=== PATIENT | female | born 1965 | race Caucasian/White ===

== ENCOUNTER 2017-03-03 17:40 | Emergency (ER) | payer OTHER ==
[~2017-03-03] VITALS: Ht 157.5 cm; Wt 52.6 kg
[2017-03-03 17:58] VITALS: BP 154/72
== END 2017-03-03 21:32 | disposition left against medical advice (07) ==
LOC: ED 17:40
DX: Z53.21 Procedure and treatment not carried out due to patient leaving prior to being seen by health care provider (principal)

== ENCOUNTER 2017-07-16 00:40 | Emergency (ER) | payer OTHER ==
[2017-07-16 04:03] LABS: BASOPHIL % 0.8 % (0-2); PLATELET COUNT 273 x10^3mcL (130-400)
[2017-07-16 05:10] LABS: ALKALINE PHOSPHATASE 167 U/L (46-116); ALT/SGPT 14 U/L (14-59); AST/SGOT 39 U/L (15-37); BILIRUBIN TOTAL 0.8 mg/dL (0.20-1.00); CARBON DIOXIDE 14.1 mmol/L (21-32); CHLORIDE SERUM 100 mmol/L (98-107); GLUCOSE SERUM 81 mg/dL (74-106); POTASSIUM SERUM 4.6 mmol/L (3.5-5.1); SODIUM SERUM 131 mmol/L (136-145); TOTAL PROTEIN, SERUM 7.7 g/dL (6.4-8.2)
[2017-07-16 05:11] LABS: ALBUMIN 2.9 g/dL (3.4-5.0)
[2017-07-16 05:30] LABS: CALCIUM 8.9 mg/dL (8.5-10.1); CREATININE SERUM 0.7 mg/dL (0.6-1.0); GFR1 > 60 mL/min
[2017-07-16 06:59] VITALS: BP 137/66
== END 2017-07-16 06:40 | disposition home or self-care (01) ==
LOC: ED 00:40
PROVIDERS: Emergency Medicine
DX: G89.29 Other chronic pain (principal); M25.551 Pain in right hip; Z88.2 Allergy status to sulfonamides; Z88.1 Allergy status to other antibiotic agents
CPT/HCPCS: J2270; J3010

== ENCOUNTER 2017-07-25 16:14 | Inpatient (IN) | payer OTHER ==
[~2017-07-25] VITALS: Ht 157.5 cm; Wt 60.9 kg
[2017-07-25 17:13] LABS: BASOPHIL % 1.3 % (0-2); PLATELET COUNT 311 x10^3mcL (130-400)
[2017-07-25 17:22] LABS: CALCIUM 8.7 mg/dL (8.5-10.1); CARBON DIOXIDE 19.5 mmol/L (21-32); CHLORIDE SERUM 104 mmol/L (98-107); CREATININE SERUM 0.8 mg/dL (0.6-1.0); GFR1 > 60 mL/min; GLUCOSE SERUM 108 mg/dL (74-106); POTASSIUM SERUM 4.2 mmol/L (3.5-5.1); SODIUM SERUM 138 mmol/L (136-145)
[2017-07-25 17:27] LABS: ALKALINE PHOSPHATASE 137 U/L (46-116); ALT/SGPT 14 U/L (14-59); AMYLASE 40 U/L (25-115); AST/SGOT 22 U/L (15-37); BILIRUBIN TOTAL 0.74 mg/dL (0.20-1.00); LIPASE 116 IU/L (73-393)
[2017-07-25 17:28] LABS: RED CELL DISTRIBUTION WIDTH 17.8 % (11.5-14.5)
[2017-07-25 17:34] LABS: ALBUMIN 2.7 g/dL (3.4-5.0)
[2017-07-25 18:25] LABS: UA SPECIFIC GRAVITY >=1.030 (1.005-1.035); microscopic required? YES; urine erythrocyte TRACE (NEGATIVE)
[2017-07-25 18:43] LABS: AMPHETAMINE QUAL UR NONE DETECTED (NEG <=1000)
[2017-07-25] MEDS ORDERED: LASIX20 MG (19:09)
[2017-07-25] MEDS ORDERED: NORCO 10-325 T1 EACH (19:10)
[2017-07-25 20:18] VITALS: BP 149/75
[2017-07-25 20:36] LABS: FREE T4 1.66 ng/dL (0.76-1.46); FREE THYROXINE INDEX 2.7 ug/dL (1.4-4.5); T4(THYROXINE) 6.8 ug/dL (4.7-13.3)
[2017-07-25 20:37] LABS: T3 TOTAL 0.7 ng/mL
[2017-07-25 20:49] LABS: CHOLESTEROL/HDL RATIO 3.7; MAGNESIUM 1.4 mg/dL (1.8-2.4); PHOSPHOROUS 4.3 mg/dL (2.5-4.9)
[2017-07-26 06:45] VITALS: BP 157/68
[2017-07-26 09:27] VITALS: BP 152/68
[2017-07-26 11:57] VITALS: BP 152/68
[2017-07-26 13:00] VITALS: BP 151/64
[2017-07-26 16:32] VITALS: BP 152/64
[2017-07-26 20:58] VITALS: BP 160/71
[2017-07-27 05:22] VITALS: BP 149/69
[2017-07-27 06:05] LABS: BASOPHIL % 0.6 % (0-2); PLATELET COUNT 250 x10^3mcL (130-400)
[2017-07-27 06:38] LABS: CALCIUM 8.3 mg/dL (8.5-10.1); CARBON DIOXIDE 24.1 mmol/L (21-32); CHLORIDE SERUM 101 mmol/L (98-107); CREATININE SERUM 0.9 mg/dL (0.6-1.0); GFR1 > 60 mL/min; GLUCOSE SERUM 88 mg/dL (74-106); MAGNESIUM 1.4 mg/dL (1.8-2.4); POTASSIUM SERUM 3.5 mmol/L (3.5-5.1); SODIUM SERUM 135 mmol/L (136-145)
[2017-07-27 06:42] LABS: RED CELL DISTRIBUTION WIDTH 18.2 % (11.5-14.5)
[2017-07-27 09:54] VITALS: Ht 157.5 cm; Wt 60.9 kg
[2017-07-27 10:35] VITALS: BP 165/72
[2017-07-27 20:01] VITALS: BP 139/74
[2017-07-27 22:00] VITALS: BP 150/64
[2017-07-28 06:33] VITALS: BP 128/65
[2017-07-28 09:49] LABS: CALCIUM 8.6 mg/dL (8.5-10.1); CARBON DIOXIDE 22.6 mmol/L (21-32); CHLORIDE SERUM 101 mmol/L (98-107); CREATININE SERUM 0.7 mg/dL (0.6-1.0); GFR1 > 60 mL/min; GLUCOSE SERUM 116 mg/dL (74-106); POTASSIUM SERUM 3.7 mmol/L (3.5-5.1); SODIUM SERUM 133 mmol/L (136-145)
[2017-07-28 10:27] VITALS: BP 119/65
[2017-07-28 17:48] VITALS: BP 128/55
[2017-07-28 22:29] VITALS: BP 136/63
[2017-07-29 05:15] VITALS: BP 145/70
[2017-07-29 08:07] LABS: CARBON DIOXIDE 20.6 mmol/L (21-32); CHLORIDE SERUM 101 mmol/L (98-107); CREATININE SERUM 0.8 mg/dL (0.6-1.0); GFR1 > 60 mL/min; GLUCOSE SERUM 94 mg/dL (74-106); MAGNESIUM 1.7 mg/dL (1.8-2.4); POTASSIUM SERUM 3.7 mmol/L (3.5-5.1); SODIUM SERUM 136 mmol/L (136-145)
[2017-07-29 08:46] VITALS: BP 145/70
[2017-07-29 10:04] VITALS: BP 130/55
[2017-07-29] MEDS ORDERED: TOP50 PO (13:09)
[2017-07-29] MEDS ORDERED: ZES20 PO (13:09)
[2017-07-29] MEDS ORDERED: LEXAPRO10 MG PO (13:11)
[2017-07-29] MEDS ORDERED: LASIX40 MG PO (13:11)
[2017-07-29] MEDS ORDERED: AMOXICILLIN500 M1 PO (13:13)
[2017-07-29 16:45] VITALS: BP 130/55
[2017-07-29 16:48] VITALS: BP 135/58
== END 2017-07-29 17:39 | disposition home health service (06) | DRG 200 ==
LOC: ED 16:14 → MU 19:08 → DU 19:08 → MU 07-26 07:34
PROVIDERS: Emergency Medicine; Family Medicine; ADMIT Family Medicine
DX: I35.1 Nonrheumatic aortic (valve) insufficiency (principal); N17.0 Acute kidney failure with tubular necrosis; I50.43 Acute on chronic combined systolic (congestive) and diastolic (congestive) heart failure; E43 Unspecified severe protein-calorie malnutrition; J90 Pleural effusion, not elsewhere classified; R18.8 Other ascites; I31.3 Pericardial effusion (noninflammatory); E83.42 Hypomagnesemia; N39.0 Urinary tract infection, site not specified; F33.1 Major depressive disorder, recurrent, moderate; I16.0 Hypertensive urgency; M16.11 Unilateral primary osteoarthritis, right hip; Z95.0 Presence of cardiac pacemaker; Z68.24 Body mass index [BMI] 24.0-24.9, adult; Z88.2 Allergy status to sulfonamides; Z88.8 Allergy status to other drugs, medicaments and biological substances; I11.0 Hypertensive heart disease with heart failure; E02 Subclinical iodine-deficiency hypothyroidism
CPT/HCPCS: 82962; 83880; 84439; 97110-GP; 97116-GP; 97530-GP; J0696; J1940; J2270; J2405; J3475; J7030; J7620; Q0092; Q0163

== ENCOUNTER 2017-08-05 11:51 | Inpatient (IN) | payer OTHER ==
[~2017-08-05] VITALS: Ht 157.5 cm; Wt 56.0 kg
[~2017-08-05 11:51] MED LIST: AMOXICILLIN500 M1 PO; LASIX20 MG; LASIX40 MG PO; LEXAPRO10 MG PO; NORCO 10-325 T1 EACH; TOP50 PO; ZES20 PO
[2017-08-05 12:42] LABS: BASOPHIL % 0.7 % (0-2); PLATELET COUNT 248 x10^3mcL (130-400)
[2017-08-05 12:43] LABS: RED CELL DISTRIBUTION WIDTH 17.4 % (11.5-14.5)
[2017-08-05 12:52] LABS: CALCIUM 9.4 mg/dL (8.5-10.1); CARBON DIOXIDE 25.8 mmol/L (21-32); CHLORIDE SERUM 102 mmol/L (98-107); CREATININE SERUM 0.8 mg/dL (0.6-1.0); GFR1 > 60 mL/min; GLUCOSE SERUM 94 mg/dL (74-106); POTASSIUM SERUM 4.2 mmol/L (3.5-5.1); SODIUM SERUM 137 mmol/L (136-145)
[2017-08-05 12:57] LABS: ALKALINE PHOSPHATASE 124 U/L (46-116); ALT/SGPT 17 U/L (14-59); AST/SGOT 28 U/L (15-37); BILIRUBIN TOTAL 1.27 mg/dL (0.20-1.00); TOTAL PROTEIN, SERUM 7.3 g/dL (6.4-8.2)
[2017-08-05 15:14] VITALS: BP 167/79
[2017-08-05 15:45] LABS: MAGNESIUM 1.5 mg/dL (1.8-2.4); PHOSPHOROUS 3.7 mg/dL (2.5-4.9)
[2017-08-05 15:52] LABS: T3 TOTAL 0.77 ng/mL
[2017-08-05 15:54] LABS: CHOLESTEROL/HDL RATIO 3.4
[2017-08-05 16:10] LABS: FREE T4 1.69 ng/dL (0.76-1.46); FREE THYROXINE INDEX 3.5 ug/dL (1.4-4.5); T4(THYROXINE) 9.3 ug/dL (4.7-13.3)
[2017-08-05 16:41] LABS: microscopic required? YES; urine erythrocyte NEGATIVE (NEGATIVE)
[2017-08-05 16:50] LABS: AMPHETAMINE QUAL UR NONE DETECTED (NEG <=1000)
[2017-08-05 18:56] VITALS: BP 157/68
[2017-08-05 23:02] VITALS: BP 153/71
[2017-08-06 06:14] VITALS: BP 122/65
[2017-08-06 06:32] LABS: BASOPHIL % 1.1 % (0-2); PLATELET COUNT 251 x10^3mcL (130-400)
[2017-08-06 06:43] LABS: RED CELL DISTRIBUTION WIDTH 18.2 % (11.5-14.5)
[2017-08-06 06:52] LABS: CALCIUM 9.1 mg/dL (8.5-10.1); CARBON DIOXIDE 24.8 mmol/L (21-32); CHLORIDE SERUM 100 mmol/L (98-107); CREATININE SERUM 0.8 mg/dL (0.6-1.0); GFR1 > 60 mL/min; GLUCOSE SERUM 106 mg/dL (74-106); MAGNESIUM 1.8 mg/dL (1.8-2.4); POTASSIUM SERUM 3.8 mmol/L (3.5-5.1); SODIUM SERUM 136 mmol/L (136-145)
[2017-08-06 10:25] VITALS: BP 142/59
[2017-08-06 10:26] VITALS: BP 122/55
[2017-08-06 14:17] VITALS: BP 128/44
[2017-08-06 17:56] VITALS: BP 130/53
[2017-08-06 21:06] VITALS: BP 141/61
[2017-08-07 07:04] VITALS: BP 162/57
[2017-08-07 07:13] LABS: CARBON DIOXIDE 27.6 mmol/L (21-32); CHLORIDE SERUM 95 mmol/L (98-107); GFR1 > 60 mL/min; GLUCOSE SERUM 99 mg/dL (74-106); MAGNESIUM 1.3 mg/dL (1.8-2.4); PHOSPHOROUS 4.8 mg/dL (2.5-4.9); POTASSIUM SERUM 3.9 mmol/L (3.5-5.1); SODIUM SERUM 135 mmol/L (136-145)
[2017-08-07 07:20] LABS: BASOPHIL % 0.9 % (0-2); PLATELET COUNT 273 x10^3mcL (130-400); RED CELL DISTRIBUTION WIDTH 17.7 % (11.5-14.5)
[2017-08-07 10:19] VITALS: BP 138/52
[2017-08-07 13:59] VITALS: BP 138/52
[2017-08-07 17:55] VITALS: BP 124/53
[2017-08-07 21:21] VITALS: BP 133/54
[2017-08-07 21:22] VITALS: BP 133/54
[2017-08-08 06:18] VITALS: BP 127/51
[2017-08-08 07:05] LABS: BASOPHIL % 0.3 % (0-2); PLATELET COUNT 274 x10^3mcL (130-400)
[2017-08-08 07:09] LABS: RED CELL DISTRIBUTION WIDTH 18.2 % (11.5-14.5)
[2017-08-08 07:43] LABS: CALCIUM 9.4 mg/dL (8.5-10.1); CARBON DIOXIDE 29.1 mmol/L (21-32); CREATININE SERUM 1.1 mg/dL (0.6-1.0); PHOSPHOROUS 4.2 mg/dL (2.5-4.9); POTASSIUM SERUM 3.7 mmol/L (3.5-5.1)
[2017-08-08 08:25] VITALS: BP 125/43
[2017-08-08 12:36] VITALS: BP 106/50
[2017-08-08] MEDS ORDERED: LEVAQUIN750 MG PO (13:14)
[2017-08-08] MEDS ORDERED: LAC PO (13:15)
[2017-08-08 13:56] VITALS: BP 106/50
[2017-08-08 15:49] VITALS: Ht 157.5 cm; Wt 56.0 kg
== END 2017-08-08 16:35 | disposition home or self-care (01) | DRG 137 ==
LOC: ED 11:51 → DU 14:04
PROVIDERS: Emergency Medicine; Family Medicine Sports Medicine; ADMIT Family Medicine
DX: J69.0 Pneumonitis due to inhalation of food and vomit (principal); N17.0 Acute kidney failure with tubular necrosis; I50.43 Acute on chronic combined systolic (congestive) and diastolic (congestive) heart failure; E44.0 Moderate protein-calorie malnutrition; I11.0 Hypertensive heart disease with heart failure; N39.0 Urinary tract infection, site not specified; E83.42 Hypomagnesemia; E02 Subclinical iodine-deficiency hypothyroidism; I35.1 Nonrheumatic aortic (valve) insufficiency; F32.9 Major depressive disorder, single episode, unspecified; M17.11 Unilateral primary osteoarthritis, right knee; E87.1 Hypo-osmolality and hyponatremia; Z68.21 Body mass index [BMI] 21.0-21.9, adult; Z88.2 Allergy status to sulfonamides; Z88.8 Allergy status to other drugs, medicaments and biological substances; Z86.73 Personal history of transient ischemic attack (TIA), and cerebral infarction without residual deficits
CPT/HCPCS: 36600; 82962; 83880; 84439; 90658; 94150; 97116-GP; 97530-GP; J1885; J1940; J1956; J2060; J2270; J2405; J3475; J7030; J7620; Q0092; Q0162

== ENCOUNTER 2017-08-27 01:57 | Inpatient (IN) | payer OTHER ==
[~2017-08-27] VITALS: Ht 157.5 cm; Wt 49.4 kg
[~2017-08-27 01:57] MED LIST changes: +LAC PO; +LEVAQUIN750 MG PO
--- NOTE | 2017-08-27 02:11 | NUR ---
PATIENT WAS BROUGHT IN BY EMS WITH COMPLAINT OF SUDDEM EPISODE OF SOB. SEEN IN NO ACUTE DISTRESS. STABLE VITAL SIGNS. PATIENT IS WAITING FOR MD EVALUATION.
--- NOTE | 2017-08-27 03:30 | NUR ---
DAYNA FROM [facility] CALL TO GET REPORT. PATIENT NOT ACCEPTED, DAYNA REQUEST A CALL BACK IN THE MORNING TO SEE IF ANY CHIDI BED AVAILABLE.( INSSURANCE ISSUE).
--- NOTE | 2017-08-27 03:41 | NUR ---
PATIENT IS ADIFFICULT IV STICK, WANTS AN EJ. NOTIFIED.
--- NOTE | 2017-08-27 04:00 | NUR ---
PATIENT MEDICATED WITH SUBLAMAZE FOR PAIN.EQUESTED NAUSEA MEDICATION
--- NOTE | 2017-08-27 04:30 | NUR ---
RESIDENT AT THE BEDSIDE TALKING TO THE PATIENT. PATIENT MEDICATED WITH ZOFRAN AND ASA.
[2017-08-27 04:36] LABS: BASOPHIL % 0.5 % (0-2); PLATELET COUNT 242 x10^3mcL (130-400)
--- NOTE | 2017-08-27 04:53 | NUR ---
REPORT WAS GIVEN TO PETERSON. PATIENT TRANSPORTED TO ROOM 236B.
[2017-08-27 04:58] LABS: CALCIUM 8.8 mg/dL (8.5-10.1); CARBON DIOXIDE 18.4 mmol/L (21-32); CHLORIDE SERUM 103 mmol/L (98-107); CREATININE SERUM 0.8 mg/dL (0.6-1.0); GFR1 > 60 mL/min; GLUCOSE SERUM 88 mg/dL (74-106); POTASSIUM SERUM 3.9 mmol/L (3.5-5.1); SODIUM SERUM 135 mmol/L (136-145)
--- NOTE | 2017-08-27 04:58 | NUR ---
PATIENT IS ADMITTED , MRSA SWAN WAS DONE. .PATIENT WAITING TO HAVE A SITTER FOR BED TO BE ASSIGNED. PATIENT IS SLEEPING AT THIS TIME.
[2017-08-27 05:02] LABS: RED CELL DISTRIBUTION WIDTH 18.2 % (11.5-14.5)
[2017-08-27 05:05] LABS: ALKALINE PHOSPHATASE 123 U/L (46-116); ALT/SGPT 12 U/L (14-59); AST/SGOT 23 U/L (15-37); BILIRUBIN TOTAL 1.51 mg/dL (0.20-1.00); TOTAL PROTEIN, SERUM 7.6 g/dL (6.4-8.2)
[2017-08-27 05:06] LABS: ALBUMIN 3.2 g/dL (3.4-5.0)
[2017-08-27 05:09] VITALS: BP 170/80
[2017-08-27 05:13] LABS: T3 TOTAL 0.76 ng/mL
[2017-08-27 05:18] LABS: MAGNESIUM 1.4 mg/dL (1.8-2.4); PHOSPHOROUS 4.2 mg/dL (2.5-4.9)
[2017-08-27 05:19] LABS: CHOLESTEROL/HDL RATIO 4.4
[2017-08-27 05:32] VITALS: BP 170/80
[2017-08-27 05:48] LABS: FREE T4 1.88 ng/dL (0.76-1.46); FREE THYROXINE INDEX 3.4 ug/dL (1.4-4.5); T4(THYROXINE) 8.8 ug/dL (4.7-13.3)
--- NOTE | 2017-08-27 06:15 | NUR ---
HEPARIN BOLUS OF 3000 UNITS GIVEN IVP, AND HEPARIN INFUSION STARTED AT 600 UNITS/HR PER PROTOCOL. PT EDUCATED ON BENEFITS AND RISKS OF HEPARIN. INFUSION STARTED TO REJ WITH NO S/S OF INFILTRATION. INFUSION DOSAGE VERIFIED BY PURVI NATURAL RESOURCES MANAGER. INFUSION VERIFIED AT BEDSIDE BY SAHIL PRIMARY RN. WILL ENDORSE CARE TO SAHIL FOR FURTHER MONITORING.
--- NOTE | 2017-08-27 07:34 | NUR ---
RECEIVED SLEEPING BUT AROUSABLE, NO RESP. DISTRESS NOTED. NO C/O PAIN OR DISCOMFORT. MG RIDER AND HEPARIN DRIP INFUSING, SITE CLEAR. CALL LIGHT WITHIN REACH. WILL CONTINUE W/PLAN OF CARE.
--- NOTE | 2017-08-27 08:55 | NUR ---
PT C/O RT HIP PAIN, MEDICATED WITH NORCO.
[2017-08-27 09:01] VITALS: BP 173/76
--- NOTE | 2017-08-27 12:38 | NUR ---
PTT 0.235 DR. MENA AWARE.
[2017-08-27 14:24] VITALS: BP 142/56
--- NOTE | 2017-08-27 14:59 | NUR ---
PTT 31.6, HEPARIN 3000UNITS GIVEN AND INFUSION ADJUSTED PER PROTOCAL. PT IN NO DISTRESS. NO ACTIVE BLEEDING NOTED. NO C/O PAIN AT THIS TIME. PTT ORDERED FOR 1800.
[2017-08-27 17:25] VITALS: BP 126/50
--- NOTE | 2017-08-27 18:48 | NUR ---
REMAINS IN NO ACUTE RESP. DISTRESS. AWAKE, ALERT AND ORIENTED. C/O HIP PAIN 06/16. MEDICATED WITH NORCO PER ORDER. HEPARIN GTT INFUSING PER ORDER. CALL LIGHT WITHIN REACH. WILL BE ENDORSED TO INCOMING SHIFT.
--- NOTE | 2017-08-27 19:31 | NUR ---
ASLEEP, EASILY AWAKENED. ORIENTED X 4. SPEECH CLEAR AND APPROPRIATE. HOB ELEVATED 30 DEG. UPPER SIDE RAILS IN RAISED POSITION. CALL LIGHT WITHIN EASY REACH. BREATHING EVEN AND UNLABORED ON ROOM AIR. STATED HAVING PAIN TO CHEST AND HIP, WORSE TO HIP. ON HEPARIN DRIP AT 800 UNITS/HR. LATEST PTT IS 62.1, PTT ORDERED FOR 2210H PER PROTOCOL.
[2017-08-27 20:33] VITALS: BP 141/62
--- NOTE | 2017-08-27 22:20 | NUR ---
URINE SPECIMEN SENT TO LAB
[2017-08-27 22:48] LABS: UA SPECIFIC GRAVITY 1.015 (1.005-1.035); microscopic required? YES; urine erythrocyte NEGATIVE (NEGATIVE)
[2017-08-27 22:56] LABS: AMPHETAMINE QUAL UR NONE DETECTED (NEG <=1000)
--- NOTE | 2017-08-27 23:03 | NUR ---
LAB CALLED, PTT 59.6. 2ND THERAPEUTIC PTT RESULT. PTT ORDERED DAILY. KEPT HEPARIN DRIP RATE AT 800 UNITS/HR PER PROTOCOL.
--- NOTE | 2017-08-27 23:33 | NUR ---
awake and alert, watching tv. denies having pain at this time. heparin drip at 800 units/hr. call light within easy reach.
[2017-08-28] VITALS (7 sets, daily range): BP systolic 104–149; BP diastolic 48–81
--- NOTE | 2017-08-28 04:53 | NUR ---
EYES CLOSED, BREATHING EVEN AND UNLABORED. CALL LIGHT WITHIN EASY REACH.
--- NOTE | 2017-08-28 05:29 | NUR ---
PT CALLED, WAS CRYING, UPSET. STATED THERE WERE BLOOD SPOTS ON LINEN AFTER PHLEBOTOMY DRAW. LINENS CHANGED. PT CALMER.
[2017-08-28 06:21] LABS: BASOPHIL % 0.6 % (0-2); PLATELET COUNT 228 x10^3mcL (130-400)
[2017-08-28 06:30] LABS: CALCIUM 8.5 mg/dL (8.5-10.1); CHLORIDE SERUM 103 mmol/L (98-107); GFR1 > 60 mL/min; GLUCOSE SERUM 84 mg/dL (74-106); MAGNESIUM 2.4 mg/dL (1.8-2.4); PHOSPHOROUS 4.9 mg/dL (2.5-4.9); POTASSIUM SERUM 4.4 mmol/L (3.5-5.1); SODIUM SERUM 131 mmol/L (136-145)
--- NOTE | 2017-08-28 07:35 | NUR ---
PATIENT LAYING IN BED. A/O X 3. NO SIGN OF ACUTE DISTRESS. NO COMPLAINT OF CHEST PAIN. NO COMPLAINT OF SOB. IV FLUIDS FLOWING. IV HEPARIN FLOWING. BED IN LOW POSITION. CALL LIGHT WITHIN REACH. WILL CONTINUE TO MONITOR.
--- NOTE | 2017-08-28 07:41 | NUR ---
PTT 34.0. GIVEN 3000 UNITS HEPARIN BOLUS AND INCREASED RATE TO 1000 UNITS/HR PER HEPARIN PROTOCOL. VERIFIED WITH SHARI TEMPLETON. NEXT PTT ORDERED FOR 11:40AM. NO ACTIVE BLEEDING NOTED AT THIS TIME. WILL CONTINUE TO MONITOR.
--- NOTE | 2017-08-28 10:30 | NUR ---
C/O GEN. BODY ACHE. 08/16. MEDICAED WITH MORPHINE IVP PER ORDER.NURSE JARETH BREAUX.
--- NOTE | 2017-08-28 12:48 | NUR ---
PT UP IN CHAIR. PT REPORTS PAIN IN RT. LEG IS TOLERABLE. NO SIGN OF ACUTE DISTRESS. NO REPORT OF CHEST PAIN. NO SOB. BED IN LOW POSITION. CALL LIGHT WITHIN REACH. IV FLUIDS FLOWING. HEPARIN FLOWING. WILL CONTINUE TO MONITOR.
--- NOTE | 2017-08-28 14:28 | NUR ---
PTT 87.1, REDUCED HEPARIN INFUSION TO 900 UNITS/HR PER HEPARIN PROTOCOL. VERIFIED WITH DALI RN. NEXT PTT ORDERED FOR 1610. NO ACTIVE BLEEDING NOTED. WILL CONTINUE TO MONITOR.
--- NOTE | 2017-08-28 15:10 | NUR ---
GAVE REPORT TO SHARI HARMON AT [facility] FOR TRANSFER TO ROOM #345B WITH DR. MCKOY. WILL CONTACT [facility] FOR TRANSPORT.
--- NOTE | 2017-08-28 17:39 | NUR ---
PTT >150. DR. HIGGINS AWARE. NO SIGNS OF BLEEDING. WILL CONTINUE TO MONITOR.
--- NOTE | 2017-08-28 18:28 | NUR ---
PATIENT SITTING IN BED. A/OX3. NO COMPLAINT OF PAIN. NO SIGN OF ACUTE DISTRESS. NO SIGN OF BLEEDING. BED IN LOW POSITION. CALL LIGHT WITHIN REACH. WILL ENDORSE TO ONCOMING SHIFT.
--- NOTE | 2017-08-28 19:21 | NUR ---
SITTING UP ON BED, BREATHING EVEN AND UNLABORED ON 2LPM OF O2 VIA NC. DENIES HAVING SHORTNESS OF BREATH. READY FOR TRANSFER TO [facility], PER DAY SHIFT REPORT, REPORT HAS BEEN GIVEN TO NURSE DEL RIO OF [facility], PT GOING TO ROOM 345B.
--- NOTE | 2017-08-28 19:26 | NUR ---
[facility] TRANSPORT HERE [place] [facility] PT AWAKE AND ALERT, IN NO ACUTE DISTRESS. NO BLEEDING. SALINE LOCK TO LEFT HAND. REPORT GIVENN TO [facility] TRANSPORT PERSONNEL.
--- NOTE | 2017-08-28 19:35 | NUR ---
REMOVED TELEBOX #18, RETURNED TO MONITOR STATION. [facility] PERSONNEL IN ROOM
--- NOTE | 2017-08-28 19:46 | NUR ---
STATED HAVING HIP PAIN 6-05/16. NORCO 7.5/325MG TABLET ADMINISTERED PO PRIOR TO TRANSPORT VIA [facility].
== END 2017-08-28 19:54 | disposition short-term general hospital (02) | DRG 194 ==
LOC: ED 01:57 → DU 04:00
PROVIDERS: Emergency Medicine; Family Medicine; ADMIT Family Medicine
DX: I11.0 Hypertensive heart disease with heart failure (principal); I21.4 Non-ST elevation (NSTEMI) myocardial infarction; I50.43 Acute on chronic combined systolic (congestive) and diastolic (congestive) heart failure; E44.0 Moderate protein-calorie malnutrition; E87.1 Hypo-osmolality and hyponatremia; I35.1 Nonrheumatic aortic (valve) insufficiency; E87.6 Hypokalemia; E83.42 Hypomagnesemia; E02 Subclinical iodine-deficiency hypothyroidism; E78.5 Hyperlipidemia, unspecified; Z68.1 Body mass index [BMI] 19.9 or less, adult; Z91.19 Patient's noncompliance with other medical treatment and regimen
CPT/HCPCS: 82962; 83880; 84439; J1644; J1940; J2270; J2405; J3010; J3475; J7030; Q0092

== ENCOUNTER 2017-09-27 20:28 | Emergency (ER) | payer OTHER ==
[2017-09-27 21:25] VITALS: BP 145/85
== END 2017-09-27 21:25 | disposition home or self-care (01) ==
LOC: ED 20:28
DX: G89.29 Other chronic pain (principal); M25.551 Pain in right hip; I10 Essential (primary) hypertension; Z88.2 Allergy status to sulfonamides; Z88.6 Allergy status to analgesic agent
CPT/HCPCS: J2270; Q0162

== ENCOUNTER 2019-03-31 21:53 | Emergency (ER) | payer OTHER | END 2019-03-31 22:25 | disposition other institution (70) | LOC: ED 21:53 | DX: Z02.89 Encounter for other administrative examinations (principal) ==

== ENCOUNTER 2019-03-31 21:53 | Emergency (ER) | payer OTHER ==
[~2019-03-31] VITALS: Ht 157.5 cm; Wt 51.3 kg
[2019-03-31 21:59] VITALS: BP 151/106; Ht 157.5 cm; Wt 51.3 kg
== END 2019-03-31 22:25 | disposition other institution (70) ==
LOC: ED 21:53
DX: Z02.89 Encounter for other administrative examinations (principal)

== ENCOUNTER 2019-06-11 18:34 | Inpatient (IN) | payer OTHER ==
[~2019-06-11] VITALS: Ht 160 cm; Wt 53.5 kg
[2019-06-11 18:37] VITALS: Ht 160 cm; Wt 53.5 kg
--- NOTE | 2019-06-11 18:43 | NUR ---
RECEIVED PATIENT TO ROOM 7, [facility], PER REPORT PATIENT'S ROOMMATE FOUND PATIENT AT HOME COVERED WITH BLOOD, TOOK METH YESTERDAY, AND WAS FIXATED ON PICKING NOSE UNTIL BLOOD ALL OVER. PATIENT AA ORIENTED TO NAME ONLY, SEEMS SCARED AND KEEPS SAYING 'PLEASE DON'T KILL ME." EYES - SHAYE, 3MM, BRISK. MUCUS -DRY. DRIED BLOOD ALL OVER FACE, NOSE, AND NECK AREA. LUNGS - CTA. BS PRESENT X 4 QUADRANTS. B/L UPPER AND LOWER EXT PULSES PALPABLE. DRY BLOOD ON BOTH ARMS AND B/L THIGHS. PATIENT PUT ON 4-PT RESTRAINT. PER [place] PATIENT ON 5150 AT THIS TIME - COMPLETED FORM IN CHART// WILL CONTINUE TO MONITOR//APR RN
--- NOTE | 2019-06-11 19:10 | NUR ---
REPORT GIVEN BY SHARI BUSTOS FOR CONTINUED CARE OF PATIENT.
--- NOTE | 2019-06-11 19:15 | NUR ---
REPORT GIVEN TO SHARI MATA FOR [facility]KA ENDORSEMENT///APR RN
[2019-06-11 19:50] LABS: CALCIUM 10.3 mg/dL (8.5-10.1); CARBON DIOXIDE 14.1 mmol/L (21-32); CHLORIDE SERUM 100 mmol/L (98-107); CREATININE SERUM 1.9 mg/dL (0.6-1.0); GFR1 30 mL/min; GLUCOSE SERUM 130 mg/dL (74-106); SODIUM SERUM 142 mmol/L (136-145)
[2019-06-11 19:55] LABS: BASOPHIL % 0.8 % (0-2); PLATELET COUNT 252 x10^3mcL (130-400)
[2019-06-11 20:03] LABS: ALBUMIN 4.3 g/dL (3.4-5.0); ALKALINE PHOSPHATASE 143 U/L (46-116); ALT/SGPT 64 U/L (14-59); AST/SGOT 157 U/L (15-37); BILIRUBIN TOTAL 1.36 mg/dL (0.20-1.00)
[2019-06-11 20:10] LABS: TOTAL PROTEIN, SERUM 8.8 g/dL (6.4-8.2)
--- NOTE | 2019-06-11 20:13 | NUR ---
MEDICATED PER MD ORDERS
--- NOTE | 2019-06-11 21:07 | NUR ---
MEDICATED PER MD ORDERS
--- NOTE | 2019-06-11 22:00 | NUR ---
RESTRAINTS REMOVED- PATIENT IS CALM IN DEMEANOR. PT IS IN FRONT OF NURSING STATION, DRAPES OPEN, BELONGINGS WERE REMOVED FROM ROOM EARLIER. SAFETY CHECK OF ROOM COMPLETE. WILL CONTINUE TO MONITOR.
--- NOTE | 2019-06-11 23:39 | NUR ---
PATIENT LYING ON GURNEY- SLIGHTLY AGITATED. SAYING THINGS LIKE "YOUR NOT GOING TO HURT ME ARE YOU". ATTEMPTED TO REASSURE PATIENT SHE WAS SAFE. BREATHING E/U. NAD NOTED.
--- NOTE | 2019-06-11 23:53 | NUR ---
PROVIDED REPORT TO SHARI RAINES FOR CONTINUED CARE OF PATIENT.
[2019-06-12] VITALS (7 sets, daily range): BP systolic 121–195; BP diastolic 76–101
--- NOTE | 2019-06-12 00:49 | NUR ---
RECEIVED PT FROM ED VIA ERYN. ORIETNED PT TO ROOM AND SURROUNDINGS. IV NOTED TO RIGHT UPPER CHEST. TELE 25 PLACED ON PT READING STA. INSTRUCTED PT ON THE USE OF CALL LIGHT FOR ASSISTANCE. ENDORSED PT TO PRIMARY NURSE YANNA
--- NOTE | 2019-06-12 01:01 | NUR ---
MEDICATED WITH PRN ATIVAN FOR ANXIETY WITH GOOD EFFECT. NO ACUTE DISTRESS NOTED. SITTER AT BEDSIDE. WILL CONTINUE TO MONITOR.
--- NOTE | 2019-06-12 06:38 | NUR ---
PT CONTINUES TO BE PARANOID THIS AM. STATES SHE IS SCARED. REORIENTED PT TO SURROUNDINGS AND SITUATION NEEDED. NO ACUTE DISTRESS NOTED. WILL ENDORSE TO ONCOMING RN.
[2019-06-12 07:00] LABS: CALCIUM 8.7 mg/dL (8.5-10.1); CARBON DIOXIDE 21.6 mmol/L (21-32); CHLORIDE SERUM 106 mmol/L (98-107); GFR1 > 60 mL/min; GLUCOSE SERUM 77 mg/dL (74-106); POTASSIUM SERUM 3.3 mmol/L (3.5-5.1); SODIUM SERUM 144 mmol/L (136-145)
--- NOTE | 2019-06-12 07:30 | NUR ---
PT ENDORSE TO ME THIS MORNING. SITTING UP IN BED. REMAINS 5150 HOLD, 1:1. DISORIENTED/ HALLUCINATIING/ PT STATING "IM I GOING TO HAVE SURGY ON MY TOE" ASK IF SHE FEELS LIKE HURTING HER SELF, JUST STARED AT ME. 1:[address]EDSIDE. TELE 25 [address], HR 103 NOTED. DENIES ANY CP OR PRESSURE. LUNGS CLEAR ON RA, NO ACUTE RESP DISTRESS OR SOB NOTED. IV TO THE RIGHT CHEST INTACTAND PATENT, INFUSING AT 100ML/HR. WILL CONTINUE TO MONITOR.
--- NOTE | 2019-06-12 08:30 | NUR ---
LAB CALLED WITH TROP 0.416- PT DENIES ANY CP OR PRESSURE, DR. BLOCK MADE AWARE.
--- NOTE | 2019-06-12 08:48 | NUR ---
RECEIVED TROPONIN RESULT IS 0.413. PAGED DR. BLOCK THROUGH OFFICE EXCHANGE AT THIS TIME.
--- NOTE | 2019-06-12 10:00 | NUR ---
SPOKE TO HER DAUGHTER ANA THIS AM/ PER PT OK TO GIVE ALL INFORMATION REGRADING HER CARE.
--- NOTE | 2019-06-12 11:28 | NUR ---
FOUND PT WITH IV TO THE RIGHT CHEST OUT/ CATHETER TIP INTACT/ WILL ATTEMP TO RE-INSERT NEW IV. STATED "ARE THEY GOING TO KILL ME" CONTINUES TO HAVE HALLUCINATIONS. 1:1 AT BEDSIDE. WILL CONTINUE TO MONITOR.
[2019-06-12 12:08] LABS: microscopic required? YES
[2019-06-12 12:09] LABS: urine erythrocyte 1+ (NEGATIVE)
[2019-06-12 12:15] LABS: AMPHETAMINE QUAL UR POSITIVE (See below)
--- NOTE | 2019-06-12 14:25 | NUR ---
PT TOLERATED 100% OF LUNCH, PT BROTHER AT BEDSIDE. WILL CONTINUE TO MONITOR.
--- NOTE | 2019-06-12 14:30 | NUR ---
PER DR. UMAIR GALDAMEZ FOR NO IV ACCESS- ORDERED FOLLOWED THROUGH.
--- NOTE | 2019-06-12 15:00 | NUR ---
DR. MCKOY AT BEDSIDE.
--- NOTE | 2019-06-12 18:43 | NUR ---
PT IS ASKING TO LEAVE, SHES STATING "I DONT FEEL SAFE HERE, PEOPLE ARE TRYING TO HURT ME" REORIENTED PT AND ADVICE HER SHE IS SAFE AND WE ARE HERE TO HELP HER, PT CALMED DOWN. PT IS NOW LAYING IN BED TRYING TO REST, 1:1 AT BEDSIDE.
--- NOTE | 2019-06-12 18:46 | NUR ---
WILL ENDORSE TO INCOMING RN.
--- NOTE | 2019-06-12 19:30 | NUR ---
RECEIVED PT FROM PREVIOUS SHIFT. PT AWAKE/ALERT/DISORIENTED AND HALLUCINATING. DENIES SOB ON RA. CALL LIGHT WITHIN REACH, BED IN LOW POSITION. SITTER AT BEDSIDE. WILL CONTINUE TO MONITOR.
--- NOTE | 2019-06-13 01:49 | NUR ---
PT RESTING IN NO ACUTE DISTRESS. RR EVEN AND UNLABORED. IV PATENT. CALL LIGHT WITHIN REACH, BED IN LOW POSITION. WILL CONTINUE TO MONITOR.
[2019-06-13 05:15] VITALS: BP 138/66
[2019-06-13 06:14] LABS: PLATELET COUNT 165 x10^3mcL (130-400)
[2019-06-13 06:30] LABS: CALCIUM 9.2 mg/dL (8.5-10.1); CARBON DIOXIDE 24.9 mmol/L (21-32); CHLORIDE SERUM 106 mmol/L (98-107); CREATININE SERUM 0.7 mg/dL (0.6-1.0); GFR1 > 60 mL/min; GLUCOSE SERUM 90 mg/dL (74-106); POTASSIUM SERUM 3.3 mmol/L (3.5-5.1); SODIUM SERUM 142 mmol/L (136-145)
--- NOTE | 2019-06-13 07:45 | NUR ---
AT 0710 - RECEIVED PATIENT FROM NIGHT NURSE. RESTING WITH EYES CLOSED. RESPIRATIONS REGULAR. 1:1 SITTER WITH PATIENT FOR 5150 HOLD. AT 0730 - AWAKE, ALERT. APPEARS ORIENTED TO PERSON, PLACE AND TIME. APPEARS CALM AND COOPERATIVE. SAT UP IN BED FOR BREAKFAST. C/O R HIP PAIN ( PT HAS HAD PRIOR HIP SURGERY). MEDICATED WITH NORCO PER EMAR.
[2019-06-13 07:55] LABS: RED CELL DISTRIBUTION WIDTH 15.6 % (11.5-14.5)
[2019-06-13 08:51] VITALS: BP 107/67
--- NOTE | 2019-06-13 08:51 | NUR ---
EHOCARDIOGRAM IN PROGRESS
[2019-06-13 10:41] LABS: BAND NEUTROPHIL 1 % (0-10); BASOPHIL 0 % (0-2); MONOCYTE 7 % (0-7); SEGMENTED NEUTROPHILS 69 % (37-75)
[2019-06-13 10:43] LABS: rbc morphology (normal/abnorm) ABNORMAL (NORMAL)
--- NOTE | 2019-06-13 12:16 | NUR ---
PATIENT SLEPING ON AND OFF FOR MOST OF MORNING. NO C/O R HIP PAIN AND MEDICATED WITH NORCO PER EMAR. PATIENT APPEARS TO HAVE PERIODS OF ANXIETY.
[2019-06-13 13:30] VITALS: BP 100/59
[2019-06-13 14:51] VITALS: BP 100/59
--- NOTE | 2019-06-13 15:19 | NUR ---
PATIENT HAS BEEN MEDICALLY CLEARED BY DR BLOCK. NOT YET CLEARED BY PHYCHIATRY.
--- NOTE | 2019-06-13 16:35 | NUR ---
CHARGE NURSE SPOKE WITH DR BLOCK REGARDING HIS DISCHARGE ORDER. CANCEL DISCHARGE PATIENT HAS NOT BEEN CLEARED BY PSYCHIATRY. DR BLOCK IS AWARE OF K+ LEVEL OF 3.3 AND POSITIVE UA. NO ADDITIONAL TREATMENT REQUIRED AT PRESENT, PER DR BLOCK.
--- NOTE | 2019-06-13 18:21 | NUR ---
SITTING UP IN BED EATING DINNER. AT BEDSIDE. VSS. R HIP PAIN UNDER CONTROL WITH NORCO PER EMAR. PATIENT IS CALM AND PLEASANT. WILL ENDORSE CARE TO NIGHT NURSE.
[2019-06-13 19:16] VITALS: BP 112/70
--- NOTE | 2019-06-13 19:20 | NUR ---
RECIEVED PATIETN AT START OF SHIFT A/O X4, RESTING IN BED, CALM AND COOPERATIVE. DENIES FEELING DEPPRESSED/ SUICIDAL. PATIENT REPORTS 9/10 PAIN TO HER R HIP. WILL MEDICATE WITH NORCO PER EMAR. ON TELE 25, NSR. NO SOB ON RA. NO IV ACCESS. MD AWARE. SITTER AT BEDSIDE FOR 5150 HOLD. BED LOCKED AND IN LOWEST POSIITN. CALL LIGHT AND BEDSDIE TABLE WITHIN REACH.
[2019-06-13 20:49] VITALS: BP 125/72
--- NOTE | 2019-06-14 01:00 | NUR ---
PATIENT'S EYES ARE CLOSED, BREATHS EVEN AND REGULAR. NO SIGNS OF DISTRESS. SITER AT BEDSIDE. CALL LIGHT WITHIN REACH.
--- NOTE | 2019-06-14 05:36 | NUR ---
PATIENT IS AWAKE REPORTING 9/10 PAIN TO HER RIGHT HIP. WILL MEDICATE WITH NORCO PER EMAR.
[2019-06-14 06:17] VITALS: BP 111/64
--- NOTE | 2019-06-14 06:18 | NUR ---
NO FURTHER SIGNIFICANT EVENTS THIS SHIFT. NO IV ACCESS. SITTER AT BEDSIDE. PATIENT IS CALM AND COOPERATIVE, DENIES THOUGHTS OF SELF HARM. 5150 EXPIRES TODAY 06/14 AT 1835. WILL ENDORSE CARE TO DAYSHIFT NURSE.
--- NOTE | 2019-06-14 07:17 | NUR ---
RECEIVED PATIENT FROM NIGHT NURSE. PATIENT AWAKE, ALERT, ORIENTED AND CALM. SITTING UP IN BED. REPORTS HAVING HAD A GOOD NIGHT. 1:1 SITTER IN ROOM WITH PATIENT FOR 6853
--- NOTE | 2019-06-14 07:40 | NUR ---
RECEIVED CALL FROM LAB WITH TROPONIN LEVEL OF 0.190. NOT REPORTED TO DOCTOR THIS IS A DOWNWARD TREND. PATIENT BEING SEEN BY BAGGAGE INSPECTOR WITH PLAN FOR CONSERVATIVE MEDICAL THERAPY. PATIENT CURRENTLY ON LOVENOX.
[2019-06-14 08:08] VITALS: BP 93/54
--- NOTE | 2019-06-14 11:02 | NUR ---
AMBULATED USING USING WALKER TO HALLWAY AND BACK TO BED. SLOW GAIT. PATIENT APPEARS RELUCTANT, SYAS THAT SHE DOES HAVE SLIGHT DIZZINESS AND IS AFRAID OF FALLING. WENT TO BATHROOM. RETURNED TO BED AND MADE COMFORTABLE.
[2019-06-14 12:56] VITALS: BP 99/52
--- NOTE | 2019-06-14 16:04 | NUR ---
SEEN BY DR BLOCK. ONCE PATIENT IS CLEARED BY DR LOW (PSYCHIATRY), SHE MAY BE DISCHARGED HOME.
[2019-06-14 18:15] VITALS: BP 111/64
--- NOTE | 2019-06-14 18:28 | NUR ---
AWAKE, ALERT AND ORIENTED. REMAINS CALM AND PLEASANT. SPOUSE AT BEDSIDE. VSS. EATING A REGULAR DIET. GOOD APPETITE. PATIENT AWARE OF PLAN TO DC HOME ONCE CLEARED BY PSYCHIATRY. WILL ENDORSE CARE TO NIGHT NURSE.
--- NOTE | 2019-06-14 19:07 | NUR ---
GIVEN NORCO PER EMAR FOR C/O R HIP PAIN. CARE NEDORSED TO NIGHT NURSE.
--- NOTE | 2019-06-14 19:29 | NUR ---
RECIEVED PATIENT AT START OF SHIFT A/O X4. NO SOB ON RA. PATIENT JUST MEDICATED FOR PAIN TO RIGHT HIP BY PREVIOUS NURSE. PATIENT DENIES DEPRESSION AND THOUGHTS OF SELF HARM. PATIENT IS CALM AND COOPERATIVE. NO IV ACCESS. BED LOCKED AND IN LOWEST POSIITON. CALL LIGHT WITHIN REACH.
--- NOTE | 2019-06-14 19:30 | NUR ---
SITTER AT BEDSIDE. [address] LOW STILL HAS NOT CLEARED PATIENT FOR DISCHARGE.
[2019-06-14 20:12] VITALS: BP 137/83
--- NOTE | 2019-06-14 20:30 | NUR ---
PATIENT'S BOYFRIEND ARRIVED AT BEDSIDE AN DEMANDED TO TAKE THE PATIENT HOME. BOYFRIEND WAS EDUCATED THAT THE PATIENT HAS AN ACTIVE 5150 AND IS NOT CLEARED BY DR. LOW TO BE DISCHARGED. HE BECAME VERY UPSET AND CALLED THE POLICE. PATIENT STATED SHE WAS OKAY WITH STAYING UNTIL SHE IS CLEARED BY DR. LOW. BOYFRIEND STORMED OUT OF THE ROOM AND LEFT THE HOSPITAL. PATIENT IS STILL AGREEABLE WITH CARE.
--- NOTE | 2019-06-15 00:20 | NUR ---
PATIENT IS AWAKE AND REQUESTING A SNACK. PATIENT GIVEN JELLO. NO DISTRESS NOTED. PATIENT CONTINUES TO BE CALM AND COOPERATIVE. SITTER AT BEDSIDE. CALL LIGHT AND BEDSIDE TABLE WITHIN REACH.
[2019-06-15 06:18] VITALS: BP 139/83
--- NOTE | 2019-06-15 06:32 | NUR ---
PATIENT SLEPT WELL THROUGH THE NIGHT. PATIENT'S EYES ARE CLOSED, BREATHS EVEN. NO IV ACCESS. SITTER AT BEDSIDE. CALL LIGHT AND BEDSIDE TABLE WITHIN REACH. WILL ENDORSE CARE TO DAYSHIF NURSE.
--- NOTE | 2019-06-15 07:25 | NUR ---
RECEIVED HAND OFF REPORT FROM NIGHT NURSE. PATIENT AWAKE AND ALERT AT THIS TIME. PATIENT HAS NO IV ACCESS WITH ORDER STATING THIS IS OK. PATIENT REQUESTING UPDATE ON WHEN SHE CAN BE DISCHARGED HOME. INFORMED PATIENT THAT SHE IS STILL ON A [address] MEJIA WILL NEED TO SEE PATIENT TODAY. PATIENT HAD NO OTHER COMPLAINTS AT THIS TIME. WILL CONTINUE TO MONITOR, CALL LIGHT WITHIN REACH, SITTER IN ROOM
[2019-06-15 08:09] VITALS: BP 142/79
--- NOTE | 2019-06-15 09:14 | NUR ---
ADMINISTERED MEDICAITIONS PER MAR. PATIENT COMPLAINING OF 8/10 PAIN TO RIGHT HIP WITH HX OF PREVIOUS INJURY. ADMINISTERED NORCO PER [facility]. PATIENT HAD NO OTHER COMPLAINTS AT THIS TIME. CALL LIGHT IS WITHIN REACH, AND SITTER IS PRESENT IN ROOM
--- NOTE | 2019-06-15 10:48 | NUR ---
PATIENT SITTING UP IN BED WATCHING TELEVISION. NO COMPLAINTS AT THIS TIME. SITTING IN ROOM, CALL LIT WITHIN REACH, WILL CONTINUE TO MONITOR
[2019-06-15 12:00] VITALS: BP 158/89
--- NOTE | 2019-06-15 15:45 | NUR ---
Received intake for patient and sent out for review to several facilities [facility] All state no beds at this time but will let us know if any beds open up upon discharges
--- NOTE | 2019-06-15 15:52 | NUR ---
PATIENT COMPLAING OP PAIN TO RIGHT HIP. 06/16 BRIANNATENT STATES THAT DUE TO HER PREVIOUS HIP INJURY SHE FEELS PAIN AFTER BENDING TO SIT ON THE TOILET. BEDSIDE COMODE PLACED IN ROOM OVER TOILET TO MINIMIZE BENDING/ WILL REASSES PAIN
[2019-06-15 16:58] VITALS: BP 155/86
--- NOTE | 2019-06-15 18:06 | NUR ---
DR LOW SEEN ON FLOOR, UNABLE TO ASK IF HE SAW PATIENT. WILL LOOK FOR PROGRESS NOTES. PATIENT STABLE AT THIS TIME, COMPLIANT WITH 5150 HOLD AT THIS TIME. WILL ENDORSE TO NIGHT NURSE
[2019-06-15 19:30] VITALS: BP 155/89
--- NOTE | 2019-06-15 19:54 | NUR ---
PT GIVEN DISCHARGE INSTRUCTIONS AND DISCHARGE PACKET, PT VERBALIZED UNDERSTANDING OF NEED TO FOLLOW UP WITH PCP. NO S/S ACUTE DISTRESS. VSS. DENIES PAIN. PT CONTACTED SNEHAL CALZADA FOR DISCHARGE HOME, PT CURRENTLY WAITING FOR TRANSPORT HOME. ALL BELONGINGS AND DISCHARGE PACKET WITH PATIENT. WILL REMOVE TELE AND ID BANDS WHEN PT TRANSPORT ARRIVES, PT TO BE ESCORTED DOWNSTAIRS WITH ELECTRONICS ENGINEERING MANAGER.
--- NOTE | 2019-06-15 20:19 | NUR ---
PT DISCHARGED HOME WITH SIGNIFICANT OTHER ZHENG, ALL BELONGINGS WITH TAURUS FERRARA. PT ACCOMPANIED DOWNSTAIRS WITH CLAUDIA OBRIEN. DISCHARGE PACKET GIVEN, PT VERBALIZED UNDERSTANDING.
== END 2019-06-15 20:11 | disposition home or self-care (01) | DRG 812 ==
LOC: ED 18:34 → DU 21:15
PROVIDERS: Emergency Medicine; Internal Medicine Pulmonary Disease; ADMIT Internal Medicine Pulmonary Disease
DX: T43.621A Poisoning by amphetamines, accidental (unintentional), initial encounter (principal); I21.A1 Myocardial infarction type 2; G92 Toxic encephalopathy; I11.0 Hypertensive heart disease with heart failure; I50.9 Heart failure, unspecified; E87.2 Acidosis; R45.851 Suicidal ideations; E86.0 Dehydration; F15.10 Other stimulant abuse, uncomplicated; I25.10 Atherosclerotic heart disease of native coronary artery without angina pectoris; I34.0 Nonrheumatic mitral (valve) insufficiency; R04.0 Epistaxis; Z95.1 Presence of aortocoronary bypass graft; Z88.2 Allergy status to sulfonamides; Z88.6 Allergy status to analgesic agent; Y92.89 Other specified places as the place of occurrence of the external cause; Z71.51 Drug abuse counseling and surveillance of drug abuser; Z79.899 Other long term (current) drug therapy
CPT/HCPCS: 97116-GP; G0378; G0480; J1650; J2060; J7030; Q0092

== ENCOUNTER 2019-10-08 12:53 | Emergency (ER) | payer OTHER ==
[~2019-10-08] VITALS: Ht 154.9 cm; Wt 51.7 kg
[2019-10-08 13:17] VITALS: BP 197/108; Ht 154.9 cm; Wt 51.7 kg
== END 2019-10-08 16:07 | disposition left against medical advice (07) ==
LOC: ED 12:53
DX: Z53.21 Procedure and treatment not carried out due to patient leaving prior to being seen by health care provider (principal)

== ENCOUNTER 2019-12-03 17:57 | Inpatient (IN) | payer OTHER ==
[~2019-12-03] VITALS: Ht 157.5 cm; Wt 51.7 kg
[2019-12-03 18:10] VITALS: Ht 157.5 cm; Wt 51.7 kg
[2019-12-03 18:37] LABS: BASOPHIL % 1.2 % (0-2); PLATELET COUNT 287 x10^3mcL (130-400); RED CELL DISTRIBUTION WIDTH 13.5 % (11.5-14.5)
[2019-12-03 21:01] LABS: ALBUMIN 4.4 g/dL (3.4-5.0); BILIRUBIN TOTAL 1.1 mg/dL (0.20-1.00); CARBON DIOXIDE 17.1 mmol/L (21-32); CREATININE SERUM 1.1 mg/dL (0.6-1.0)
[2019-12-04 02:43] LABS: UA SPECIFIC GRAVITY 1.025 (1.005-1.035); microscopic required? YES; urine erythrocyte 3+ (NEGATIVE)
[2019-12-04 05:02] VITALS: BP 151/91
[2019-12-04 08:45] VITALS: BP 147/85
[2019-12-04 18:43] VITALS: BP 119/60
[2019-12-04 21:31] VITALS: BP 88/53
[2019-12-04 22:00] VITALS: BP 95/47
[2019-12-04 22:45] LABS: CREATININE UR 130.4 mg/dL
[2019-12-05 05:48] VITALS: BP 102/55
[2019-12-05 06:59] LABS: CALCIUM 9.6 mg/dL (8.5-10.1); CARBON DIOXIDE 24.8 mmol/L (21-32); CREATININE SERUM 1.4 mg/dL (0.6-1.0); POTASSIUM SERUM 3.6 mmol/L (3.5-5.1)
[2019-12-05 08:51] VITALS: BP 90/56
[2019-12-05 10:37] LABS: BASOPHIL % 0.4 % (0-2); PLATELET COUNT 189 x10^3mcL (130-400); RED CELL DISTRIBUTION WIDTH 13.7 % (11.5-14.5)
[2019-12-05 12:51] VITALS: BP 96/43
[2019-12-05 16:42] VITALS: BP 108/80
[2019-12-05 20:08] VITALS: BP 107/63
[2019-12-06 05:28] VITALS: BP 127/70
[2019-12-06 06:27] LABS: BASOPHIL % 0.7 % (0-2); PLATELET COUNT 164 x10^3mcL (130-400); RED CELL DISTRIBUTION WIDTH 13.5 % (11.5-14.5)
[2019-12-06 06:40] LABS: CALCIUM 8.8 mg/dL (8.5-10.1); CARBON DIOXIDE 24.3 mmol/L (21-32); CHLORIDE SERUM 104 mmol/L (98-107); CREATININE SERUM 0.9 mg/dL (0.6-1.0); GFR1 > 60 mL/min; GLUCOSE SERUM 101 mg/dL (74-106); SODIUM SERUM 138 mmol/L (136-145)
[2019-12-06 08:09] VITALS: BP 101/61
[2019-12-06 11:40] VITALS: BP 118/78
[2019-12-06] MEDS ORDERED: CIPRO500 MG PO (14:43)
[2019-12-06] MEDS ORDERED: NORCO1 TA2 PO (14:44)
[2019-12-06] MEDS ORDERED: FLO4 PO (14:45)
== END 2019-12-06 15:19 | disposition home or self-care (01) | DRG 465 ==
LOC: ED 17:57 → MU 12-04 02:47
PROVIDERS: Emergency Medicine; Internal Medicine Nephrology; Internal Medicine Pulmonary Disease; ADMIT Internal Medicine Pulmonary Disease
DX: N20.2 Calculus of kidney with calculus of ureter (principal); F32.9 Major depressive disorder, single episode, unspecified; I10 Essential (primary) hypertension; I25.10 Atherosclerotic heart disease of native coronary artery without angina pectoris; N39.0 Urinary tract infection, site not specified; R31.9 Hematuria, unspecified; N21.0 Calculus in bladder; Z95.1 Presence of aortocoronary bypass graft; Z88.2 Allergy status to sulfonamides; Z88.6 Allergy status to analgesic agent
CPT/HCPCS: G0378; J0696; J2060; J2270; J2405; J7030; Q0162; Q9967

== ENCOUNTER 2020-03-13 07:23 | Inpatient (IN) | payer OTHER ==
[~2020-03-13] VITALS: Ht 160 cm; Wt 54.4 kg
[~2020-03-13 07:23] MED LIST changes: +CIPRO500 MG PO; +FLO4 PO; +NORCO1 TA2 PO
[2020-03-13 07:29] VITALS: Ht 160 cm; Wt 54.4 kg
[2020-03-13 08:54] LABS: BASOPHIL % 0.8 % (0-2); PLATELET COUNT 170 x10^3mcL (130-400); RED CELL DISTRIBUTION WIDTH 13.4 % (11.5-14.5)
[2020-03-13 09:28] LABS: UA SPECIFIC GRAVITY 1.025 (1.005-1.035); microscopic required? YES; urine erythrocyte 3+ (NEGATIVE)
[2020-03-13 09:30] LABS: ALBUMIN 3.7 g/dL (3.4-5.0); ALKALINE PHOSPHATASE 77 U/L (46-116); ALT/SGPT 99 U/L (14-59); AST/SGOT 386 U/L (15-37); BILIRUBIN TOTAL 0.4 mg/dL (0.20-1.00); CALCIUM 9.4 mg/dL (8.5-10.1); CARBON DIOXIDE 13.8 mmol/L (21-32); CHLORIDE SERUM 89 mmol/L (98-107); CREATININE SERUM 2.4 mg/dL (0.6-1.0); GFR1 23 mL/min; GLUCOSE SERUM 154 mg/dL (74-106); LIPASE 350 IU/L (73-393); POTASSIUM SERUM 3.7 mmol/L (3.5-5.1); SODIUM SERUM 132 mmol/L (136-145); TOTAL PROTEIN, SERUM 6.6 g/dL (6.4-8.2)
[2020-03-13 09:46] LABS: AMPHETAMINE QUAL UR NONE DETECTED (See below)
[2020-03-13 13:54] VITALS: BP 101/63
[2020-03-13 17:05] VITALS: BP 136/87
[2020-03-13 19:32] VITALS: BP 122/64
[2020-03-14 05:28] VITALS: BP 153/62
[2020-03-14 06:44] LABS: BASOPHIL % 0.3 % (0-2)
[2020-03-14 07:09] LABS: CALCIUM 7.8 mg/dL (8.5-10.1); CARBON DIOXIDE 22.3 mmol/L (21-32); CREATININE SERUM 1.5 mg/dL (0.6-1.0); MAGNESIUM 1.5 mg/dL (1.8-2.4); POTASSIUM SERUM 3.2 mmol/L (3.5-5.1)
[2020-03-14 07:29] VITALS: BP 99/55
[2020-03-14 08:10] LABS: PLATELET COUNT 126 x10^3mcL (130-400)
[2020-03-14 14:57] LABS: rbc morphology (normal/abnorm) ABNORMAL (NORMAL)
[2020-03-14 16:39] VITALS: BP 109/61
[2020-03-15 05:26] VITALS: BP 100/71
[2020-03-15 08:23] LABS: ALKALINE PHOSPHATASE 47 U/L (46-116); ALT/SGPT 105 U/L (14-59); AST/SGOT 280 U/L (15-37); BILIRUBIN TOTAL 0.7 mg/dL (0.20-1.00); CALCIUM 8.3 mg/dL (8.5-10.1); CARBON DIOXIDE 21.1 mmol/L (21-32); CHLORIDE SERUM 108 mmol/L (98-107); CREATININE SERUM 0.9 mg/dL (0.6-1.0); GFR1 > 60 mL/min; GLUCOSE SERUM 90 mg/dL (74-106); POTASSIUM SERUM 3.3 mmol/L (3.5-5.1); SODIUM SERUM 140 mmol/L (136-145)
[2020-03-15 08:32] LABS: ALBUMIN 2.5 g/dL (3.4-5.0)
[2020-03-15 08:47] LABS: PLATELET COUNT 134 x10^3mcL (130-400); RED CELL DISTRIBUTION WIDTH 20.5 % (11.5-14.5)
[2020-03-15 08:48] LABS: BASOPHIL % 0.5 % (0-2)
[2020-03-15 08:57] LABS: MAGNESIUM 2.1 mg/dL (1.8-2.4); PHOSPHOROUS 1.4 mg/dL (2.5-4.9)
[2020-03-15 09:00] VITALS: BP 102/73
[2020-03-15 09:45] LABS: rbc morphology (normal/abnorm) ABNORMAL (NORMAL)
[2020-03-15 13:49] VITALS: BP 91/56
[2020-03-15 17:15] VITALS: BP 95/66
[2020-03-15 20:07] VITALS: BP 94/62
[2020-03-16 05:09] VITALS: BP 131/74
[2020-03-16 06:52] LABS: BASOPHIL % 0.6 % (0-2); PLATELET COUNT 156 x10^3mcL (130-400)
[2020-03-16 07:01] LABS: RED CELL DISTRIBUTION WIDTH 20.5 % (11.5-14.5)
[2020-03-16 07:35] LABS: CALCIUM 8.2 mg/dL (8.5-10.1); CARBON DIOXIDE 20.2 mmol/L (21-32); CHLORIDE SERUM 107 mmol/L (98-107); CREATININE SERUM 0.7 mg/dL (0.6-1.0); GFR1 > 60 mL/min; GLUCOSE SERUM 98 mg/dL (74-106); MAGNESIUM 1.5 mg/dL (1.8-2.4); POTASSIUM SERUM 4.3 mmol/L (3.5-5.1); SODIUM SERUM 139 mmol/L (136-145)
[2020-03-16 08:44] VITALS: BP 177/92
[2020-03-16 09:26] VITALS: BP 105/70
[2020-03-16 10:24] LABS: rbc morphology (normal/abnorm) ABNORMAL (NORMAL)
[2020-03-16 13:25] VITALS: BP 113/69
[2020-03-16] MEDS ORDERED: PRO40 PO (14:12)
[2020-03-16] MEDS ORDERED: CAR1 PO (14:12)
[2020-03-16 17:27] VITALS: BP 110/72
[2020-03-16 20:58] VITALS: BP 110/65
[2020-03-17 06:13] VITALS: BP 119/71
[2020-03-17 07:18] LABS: CALCIUM 8.3 mg/dL (8.5-10.1); CHLORIDE SERUM 108 mmol/L (98-107); CREATININE SERUM 0.8 mg/dL (0.6-1.0); GFR1 > 60 mL/min; GLUCOSE SERUM 108 mg/dL (74-106); MAGNESIUM 1.5 mg/dL (1.8-2.4); POTASSIUM SERUM 3.9 mmol/L (3.5-5.1); SODIUM SERUM 139 mmol/L (136-145)
[2020-03-17 07:47] VITALS: BP 133/74
[2020-03-17 09:55] LABS: PLATELET COUNT 159 x10^3mcL (130-400)
[2020-03-17 09:56] LABS: RED CELL DISTRIBUTION WIDTH 21.5 % (11.5-14.5)
[2020-03-17 11:34] VITALS: BP 133/74
[2020-03-17 11:36] VITALS: BP 125/77
[2020-03-17 12:15] LABS: BAND NEUTROPHIL 10 % (0-10); BASOPHIL 0 % (0-2); METAMYELOCTE 2 % (0-2); MONOCYTE 23 % (0-7); SEGMENTED NEUTROPHILS 44 % (37-75)
[2020-03-17 12:16] LABS: PLATELET MORPHOLOGY LARGE PLATELET SEEN; ovalocyte/elliptocyte 1+; rbc morphology (normal/abnorm) ABNORMAL (NORMAL); tear drop cell (dacryocyte) 1+
== END 2020-03-17 17:28 | disposition home health service (06) | DRG 242 ==
LOC: ED 07:23 → DU 11:23
PROVIDERS: Emergency Medicine; Internal Medicine; Internal Medicine Pulmonary Disease; ADMIT Hospitalist
PROC: 0DJ08ZZ Inspection of Upper Intestinal Tract, Via Natural or Artificial Opening Endoscopic (ICD-10-PCS; 2020-03-13)
PROC: 30233N1 Transfusion of Nonautologous Red Blood Cells into Peripheral Vein, Percutaneous Approach (ICD-10-PCS; principal; 2020-03-13 13:30)
DX: K22.6 Gastro-esophageal laceration-hemorrhage syndrome (principal); N17.0 Acute kidney failure with tubular necrosis; G93.41 Metabolic encephalopathy; E72.20 Disorder of urea cycle metabolism, unspecified; K44.0 Diaphragmatic hernia with obstruction, without gangrene; N17.9 Acute kidney failure, unspecified; E87.2 Acidosis; K70.30 Alcoholic cirrhosis of liver without ascites; N18.3 Chronic kidney disease, stage 3 (moderate); K92.2 Gastrointestinal hemorrhage, unspecified; D62 Acute posthemorrhagic anemia; F10.10 Alcohol abuse, uncomplicated; D53.9 Nutritional anemia, unspecified; I12.9 Hypertensive chronic kidney disease with stage 1 through stage 4 chronic kidney disease, or unspecified chronic kidney disease; R00.0 Tachycardia, unspecified; Z88.2 Allergy status to sulfonamides; Z88.8 Allergy status to other drugs, medicaments and biological substances; Z95.2 Presence of prosthetic heart valve; Z79.899 Other long term (current) drug therapy
CPT/HCPCS: 43235; 97112-GP; C9113; G0378; G0480; J1200; J1610; J2060; J2250; J2310; J2354; J2405; J2543; J3010; J3411; J3475; J3480; J3490; J7030; J7040; P9016; Q0092

== ENCOUNTER 2020-05-11 08:14 | Inpatient (IN) | payer OTHER, SELFPAY ==
[~2020-05-11] VITALS: Ht 167.6 cm; Wt 55.0 kg
[~2020-05-11 08:14] MED LIST changes: +CAR1 PO; +PRO40 PO
[2020-05-11 08:15] VITALS: Ht 167.6 cm; Wt 55.0 kg
[2020-05-11 10:18] LABS: ALKALINE PHOSPHATASE 110 U/L (46-116); ALT/SGPT 158 U/L (14-59); BILIRUBIN TOTAL 2.5 mg/dL (0.20-1.00); CALCIUM 9.5 mg/dL (8.5-10.1); CARBON DIOXIDE 11.6 mmol/L (21-32); CHLORIDE SERUM 91 mmol/L (98-107); GLUCOSE SERUM 150 mg/dL (74-106); POTASSIUM SERUM 3.6 mmol/L (3.5-5.1); SODIUM SERUM 130 mmol/L (136-145); TOTAL PROTEIN, SERUM 7.5 g/dL (6.4-8.2)
[2020-05-11 10:21] LABS: ALBUMIN 2.6 g/dL (3.4-5.0); GFR1 10 mL/min
[2020-05-11 10:22] LABS: CREATININE SERUM 4.8 mg/dL (0.6-1.0)
[2020-05-11 10:58] LABS: BASOPHIL % 0 % (0-2); RED CELL DISTRIBUTION WIDTH 19.1 % (11.5-14.5)
[2020-05-11 11:15] LABS: AMPHETAMINE QUAL UR NONE DETECTED (See below)
[2020-05-11 11:17] LABS: AST/SGOT 1380 U/L (15-37)
[2020-05-11 11:51] LABS: UA SPECIFIC GRAVITY 1.025 (1.005-1.035); microscopic required? YES; urine erythrocyte 3+ (NEGATIVE)
[2020-05-11 12:21] LABS: PLATELET COUNT 18 x10^3mcL (130-400)
[2020-05-11 14:58] VITALS: BP 188/75
[2020-05-11 15:21] LABS: RED CELL DISTRIBUTION WIDTH 19.2 % (11.5-14.5)
[2020-05-11 15:22] LABS: PLATELET COUNT 14 x10^3mcL (130-400)
[2020-05-11 15:48] LABS: BAND NEUTROPHIL 6 % (0-10); BASOPHIL 0 % (0-2); MONOCYTE 2 % (0-7); SEGMENTED NEUTROPHILS 86 % (37-75); rbc morphology (normal/abnorm) ABNORMAL (NORMAL)
[2020-05-11 15:49] LABS: PLATELET MORPHOLOGY PLATELETS DECREASED
[2020-05-11 16:11] VITALS: BP 116/71
[2020-05-11 18:41] LABS: CALCIUM 8.3 mg/dL (8.5-10.1); CARBON DIOXIDE 11.5 mmol/L (21-32); POTASSIUM SERUM 3.2 mmol/L (3.5-5.1)
[2020-05-11 18:53] LABS: CREATININE SERUM 4.9 mg/dL (0.6-1.0)
[2020-05-11 19:25] VITALS: BP 83/59
[2020-05-11 22:38] LABS: PLATELET COUNT 13 x10^3mcL (130-400)
[2020-05-11 22:53] LABS: BAND NEUTROPHIL 5 % (0-10); MONOCYTE 3 % (0-7); SEGMENTED NEUTROPHILS 85 % (37-75)
[2020-05-11 22:54] LABS: PLATELET MORPHOLOGY PLATELETS DECREASED; rbc morphology (normal/abnorm) ABNORMAL (NORMAL)
[2020-05-11 23:12] VITALS: BP 87/60
[2020-05-12 03:07] VITALS: BP 109/74
[2020-05-12 06:11] LABS: PLATELET COUNT 46 x10^3mcL (130-400)
[2020-05-12 06:12] LABS: BASOPHIL % 0 % (0-2)
[2020-05-12 06:31] LABS: BILIRUBIN TOTAL 1.55 mg/dL (0.20-1.00); CALCIUM 7.9 mg/dL (8.5-10.1); CARBON DIOXIDE 15.7 mmol/L (21-32); MAGNESIUM 1.4 mg/dL (1.8-2.4)
[2020-05-12 06:47] LABS: ALBUMIN 1.8 g/dL (3.4-5.0); TOTAL PROTEIN, SERUM 5.2 g/dL (6.4-8.2)
[2020-05-12 06:50] LABS: POTASSIUM SERUM 2.5 mmol/L (3.5-5.1)
[2020-05-12 06:51] LABS: CREATININE SERUM 5.1 mg/dL (0.6-1.0)
[2020-05-12 08:00] VITALS: BP 88/60
[2020-05-12 12:30] VITALS: BP 84/60
[2020-05-12 16:00] VITALS: BP 99/70
[2020-05-12 17:42] LABS: RED CELL DISTRIBUTION WIDTH 19.7 % (11.5-14.5)
[2020-05-12 17:43] LABS: PLATELET COUNT 27 x10^3mcL (130-400)
[2020-05-12 18:09] LABS: CALCIUM 8.2 mg/dL (8.5-10.1); CARBON DIOXIDE 14.6 mmol/L (21-32)
[2020-05-12 18:13] LABS: BAND NEUTROPHIL 6 % (0-10); BASOPHIL 0 % (0-2); MONOCYTE 2 % (0-7); SEGMENTED NEUTROPHILS 84 % (37-75); rbc morphology (normal/abnorm) ABNORMAL (NORMAL)
[2020-05-12 18:14] LABS: PLATELET MORPHOLOGY PLATELETS DECREASED
[2020-05-12 18:16] LABS: CREATININE SERUM 5.1 mg/dL (0.6-1.0)
[2020-05-12 19:30] VITALS: BP 106/79
[2020-05-12 23:21] VITALS: BP 77/36
[2020-05-13] VITALS (7 sets, daily range): BP systolic 95–121; BP diastolic 64–90
[2020-05-13 01:06] LABS: RED CELL DISTRIBUTION WIDTH 20.1 % (11.5-14.5)
[2020-05-13 01:17] LABS: SEGMENTED NEUTROPHILS 60 % (37-75)
[2020-05-13 01:18] LABS: BAND NEUTROPHIL 20 % (0-10); PLATELET MORPHOLOGY PLATELETS DECREASED; rbc morphology (normal/abnorm) ABNORMAL (NORMAL)
[2020-05-13 01:19] LABS: PLATELET COUNT 21 x10^3mcL (130-400)
[2020-05-13 06:18] LABS: RED CELL DISTRIBUTION WIDTH 19.6 % (11.5-14.5); SEGMENTED NEUTROPHILS 60 % (37-75)
[2020-05-13 06:19] LABS: BAND NEUTROPHIL 20 % (0-10); PLATELET MORPHOLOGY PLATELETS DECREASED; rbc morphology (normal/abnorm) NORMAL (NORMAL)
[2020-05-13 06:20] LABS: PLATELET COUNT 20 x10^3mcL (130-400)
[2020-05-13 06:28] LABS: BILIRUBIN DIRECT 1.22 mg/dL (0.0-0.2); BILIRUBIN TOTAL 1.66 mg/dL (0.20-1.00); CALCIUM 8.2 mg/dL (8.5-10.1); CARBON DIOXIDE 23.7 mmol/L (21-32); CREATININE SERUM 3.4 mg/dL (0.6-1.0)
[2020-05-13 06:29] LABS: ALBUMIN 2.2 g/dL (3.4-5.0); TOTAL PROTEIN, SERUM 5.4 g/dL (6.4-8.2)
[2020-05-14 03:22] VITALS: BP 125/92
[2020-05-14 05:54] LABS: BILIRUBIN DIRECT 1.43 mg/dL (0.0-0.2); BILIRUBIN TOTAL 1.8 mg/dL (0.20-1.00); CALCIUM 8.7 mg/dL (8.5-10.1); CARBON DIOXIDE 21.8 mmol/L (21-32); CREATININE SERUM 3.9 mg/dL (0.6-1.0); POTASSIUM SERUM 3.8 mmol/L (3.5-5.1)
[2020-05-14 05:55] LABS: TOTAL PROTEIN, SERUM 5.5 g/dL (6.4-8.2)
[2020-05-14 05:56] LABS: RED CELL DISTRIBUTION WIDTH 20.3 % (11.5-14.5)
[2020-05-14 05:58] LABS: BAND NEUTROPHIL 20 % (0-10); SEGMENTED NEUTROPHILS 60 % (37-75); rbc morphology (normal/abnorm) ABNORMAL (NORMAL)
[2020-05-14 05:59] LABS: PLATELET MORPHOLOGY PLATELETS DECREASED
[2020-05-14 06:08] LABS: PLATELET COUNT 22 x10^3mcL (130-400)
[2020-05-14 07:56] VITALS: BP 139/99
[2020-05-14 20:05] VITALS: BP 157/93
[2020-05-14 23:17] VITALS: BP 151/97
[2020-05-15 03:14] VITALS: BP 133/49
[2020-05-15 05:48] LABS: RED CELL DISTRIBUTION WIDTH 20.2 % (11.5-14.5)
[2020-05-15 05:53] LABS: CALCIUM 8.9 mg/dL (8.5-10.1); CARBON DIOXIDE 22.7 mmol/L (21-32); MAGNESIUM 1.9 mg/dL (1.8-2.4); POTASSIUM SERUM 3.7 mmol/L (3.5-5.1)
[2020-05-15 06:12] LABS: BAND NEUTROPHIL 10 % (0-10); PLATELET MORPHOLOGY PLATELETS DECREASED; SEGMENTED NEUTROPHILS 70 % (37-75); rbc morphology (normal/abnorm) NORMAL (NORMAL)
[2020-05-15 06:14] LABS: PLATELET COUNT 27 x10^3mcL (130-400)
[2020-05-15 06:22] LABS: BILIRUBIN DIRECT 1.02 mg/dL (0.0-0.2); BILIRUBIN TOTAL 1.3 mg/dL (0.20-1.00)
[2020-05-15 06:24] LABS: ALBUMIN 2.2 g/dL (3.4-5.0); PHOSPHOROUS 0.8 mg/dL (2.5-4.9); TOTAL PROTEIN, SERUM 5.9 g/dL (6.4-8.2)
[2020-05-15 07:07] LABS: CHOLESTEROL/HDL RATIO 17.4
[2020-05-15 09:38] VITALS: BP 150/93
[2020-05-15 12:30] VITALS: BP 150/108
[2020-05-15 16:30] VITALS: BP 151/111
[2020-05-15 20:00] VITALS: BP 140/99
[2020-05-16 07:17] LABS: CALCIUM 7.9 mg/dL (8.5-10.1); CARBON DIOXIDE 18.6 mmol/L (21-32); CREATININE SERUM 3.5 mg/dL (0.6-1.0); MAGNESIUM 1.5 mg/dL (1.8-2.4); PHOSPHOROUS 3.1 mg/dL (2.5-4.9); POTASSIUM SERUM 3.2 mmol/L (3.5-5.1)
[2020-05-16 07:43] VITALS: BP 136/98
[2020-05-16 11:11] VITALS: BP 140/97
[2020-05-16 11:29] LABS: BAND NEUTROPHIL 12 % (0-10); MONOCYTE 3 % (0-7); SEGMENTED NEUTROPHILS 69 % (37-75)
[2020-05-16 11:30] LABS: ATYPICAL LYMPH 1 %; PLATELET MORPHOLOGY PLATELETS DECREASED; rbc morphology (normal/abnorm) ABNORMAL (NORMAL)
[2020-05-16 11:31] LABS: PLATELET COUNT 20 x10^3mcL (130-400)
[2020-05-16 15:27] VITALS: BP 135/97
[2020-05-16 21:22] VITALS: BP 131/96
[2020-05-16 22:07] VITALS: BP 143/98
[2020-05-17 05:39] VITALS: BP 136/98
[2020-05-17 09:04] VITALS: BP 136/92
[2020-05-17 12:42] VITALS: BP 137/97
[2020-05-17 17:02] VITALS: BP 129/88
[2020-05-17 20:52] VITALS: BP 138/87
[2020-05-17 21:11] LABS: CALCIUM 7.7 mg/dL (8.5-10.1); CARBON DIOXIDE 24.2 mmol/L (21-32); POTASSIUM SERUM 3.1 mmol/L (3.5-5.1)
[2020-05-18 00:26] VITALS: BP 127/84
[2020-05-18 06:02] VITALS: BP 141/90
[2020-05-18 08:19] LABS: CALCIUM 7.8 mg/dL (8.5-10.1); CARBON DIOXIDE 19.3 mmol/L (21-32); CREATININE SERUM 2.5 mg/dL (0.6-1.0); POTASSIUM SERUM 3.2 mmol/L (3.5-5.1)
[2020-05-18 09:32] VITALS: BP 129/96
[2020-05-18 13:38] VITALS: BP 131/86
[2020-05-18 15:29] VITALS: BP 120/87
== END 2020-05-18 18:22 | disposition hospice, home (50) | DRG 720 ==
LOC: ED 08:14 → IC 12:08 → DU 05-16 18:08
PROVIDERS: Emergency Medicine; Internal Medicine; Internal Medicine Cardiovascular Disease; Internal Medicine Nephrology; Internal Medicine Pulmonary Disease; ADMIT Internal Medicine Pulmonary Disease; ATTEND Internal Medicine Pulmonary Disease
PROC: 30233R1 Transfusion of Nonautologous Platelets into Peripheral Vein, Percutaneous Approach (ICD-10-PCS; principal; 2020-05-11)
PROC: 02HV33Z Insertion of Infusion Device into Superior Vena Cava, Percutaneous Approach (ICD-10-PCS; 2020-05-11)
PROC: B548ZZA Ultrasonography of Superior Vena Cava, Guidance (ICD-10-PCS; 2020-05-11)
PROC: 02HV33Z Insertion of Infusion Device into Superior Vena Cava, Percutaneous Approach (ICD-10-PCS; 2020-05-12)
PROC: B548ZZA Ultrasonography of Superior Vena Cava, Guidance (ICD-10-PCS; 2020-05-12)
PROC: 5A09357 Assistance with Respiratory Ventilation, Less than 24 Consecutive Hours, Continuous Positive Airway Pressure (ICD-10-PCS; 2020-05-13)
PROC: 5A09357 Assistance with Respiratory Ventilation, Less than 24 Consecutive Hours, Continuous Positive Airway Pressure (ICD-10-PCS; 2020-05-14)
PROC: 5A09357 Assistance with Respiratory Ventilation, Less than 24 Consecutive Hours, Continuous Positive Airway Pressure (ICD-10-PCS; 2020-05-15)
DX: A41.01 Sepsis due to Methicillin susceptible Staphylococcus aureus (principal); N17.0 Acute kidney failure with tubular necrosis; J96.01 Acute respiratory failure with hypoxia; G93.41 Metabolic encephalopathy; J18.9 Pneumonia, unspecified organism; D69.6 Thrombocytopenia, unspecified; E83.42 Hypomagnesemia; E87.0 Hyperosmolality and hypernatremia; N18.4 Chronic kidney disease, stage 4 (severe); K70.30 Alcoholic cirrhosis of liver without ascites; I12.9 Hypertensive chronic kidney disease with stage 1 through stage 4 chronic kidney disease, or unspecified chronic kidney disease; Z88.2 Allergy status to sulfonamides; Z88.8 Allergy status to other drugs, medicaments and biological substances; F32.9 Major depressive disorder, single episode, unspecified; Z95.1 Presence of aortocoronary bypass graft; I25.10 Atherosclerotic heart disease of native coronary artery without angina pectoris; N39.0 Urinary tract infection, site not specified; E87.6 Hypokalemia
CPT/HCPCS: 36556; 36600; 83880; 85378; C9113; G0378; G0480; J0132; J0696; J1644; J1956; J2270; J2543; J3370; J3411; J3475; J3480; J3490; J7030; J7040; J7042; J7070; P9035; P9047; Q0092; U0003-CS